=== PATIENT | female | born 1945 | race Caucasian/White ===

== ENCOUNTER → 2017-04-26 | Outpatient (CLI) | payer OTHER, BC ==
[~2017-04-26] MED LIST: LOSARTAN-HCTZ1 EACH; OXYBUTYNIN CHLO10 MG; PRAVASTATIN SOD40 MG; RESTASIS 01 DROP/0.4
== END | disposition home or self-care (01) ==
LOC: RAD 17:53
DX: M79.81 Nontraumatic hematoma of soft tissue (principal)
CPT/HCPCS: 93971

== ENCOUNTER → 2017-09-21 | Outpatient (CLI) | payer OTHER, BC | END | disposition home or self-care (01) | DX: Z01.818 Encounter for other preprocedural examination (principal); M17.12 Unilateral primary osteoarthritis, left knee; R26.2 Difficulty in walking, not elsewhere classified; M25.562 Pain in left knee; M25.662 Stiffness of left knee, not elsewhere classified; M62.81 Muscle weakness (generalized) | CPT/HCPCS: 97161 GP; 97165 GO; 97530 GP; 97535 GO; G8978 GP; G8979 GP; G8980 GP; G8984 GO; G8985 GO; G8986 GO ==

== ENCOUNTER 2017-10-04 22:10 | Inpatient (IN) | payer OTHER, BC ==
[~2017-10-04] VITALS: Ht 170.2 cm; Wt 94.8 kg
[~2017-10-04 22:10] MED LIST changes: +BIOTIN 5000MCG PO; +CLARITIN,ALAVAR10 MG PO; +FIBER THERAPY0.52 GM PO; +FLAX SEED OIL1 EACH PO; +FLONASE16 G1 BOTH NARES; +GLUCOSAMINE &1 EACH PO; +LITE COAT ASPI325 M1 PO; +OMEGA DHA92 MG PO; +PRILOSEC20 MG PO; +TURMERIC500 M2 PO; +VITAMIN D35000 UNIT PO
[2017-10-05 08:56] VITALS: BP 174/92
[2017-10-05 16:22] VITALS: BP 141/86
[2017-10-05 20:09] VITALS: BP 137/79
[2017-10-06 00:23] VITALS: BP 121/83
[2017-10-06 04:23] VITALS: BP 150/71
[2017-10-06 08:00] VITALS: BP 104/73
[2017-10-06 12:07] VITALS: BP 107/69
[2017-10-06 15:53] VITALS: BP 112/57
[2017-10-06 20:18] VITALS: BP 129/60
[2017-10-07 00:22] VITALS: BP 126/58
[2017-10-07 04:00] VITALS: BP 124/82
[2017-10-07 07:45] VITALS: BP 118/64
[2017-10-07] MEDS ORDERED: ENDOCET 5-3251 EACH PO (08:16)
[2017-10-07] MEDS ORDERED: ELIQUIS2.5 MG PO (08:16)
[2017-10-07 12:15] VITALS: BP 126/58
== END 2017-10-07 15:29 | DRG 470 ==
LOC: ENRESERV 22:10 → 2SOUTH 10-05 08:23 → 3WEST 10-05 08:29 → 2SOUTH 10-05 13:09 → 3WEST 10-05 15:33
PROC: 0SRD0J9 Replacement of Left Knee Joint with Synthetic Substitute, Cemented, Open Approach (ICD-10-PCS; principal; 2017-10-05)
DX: M17.12 Unilateral primary osteoarthritis, left knee (principal); M23.204 Derangement of unspecified medial meniscus due to old tear or injury, left knee; I10 Essential (primary) hypertension; K21.9 Gastro-esophageal reflux disease without esophagitis; J45.909 Unspecified asthma, uncomplicated; E78.00 Pure hypercholesterolemia, unspecified; G43.909 Migraine, unspecified, not intractable, without status migrainosus
CPT/HCPCS: C1713; J0131; J0690; J1100; J1885; J2250; J2405; J2795; J3010; J7050; J7120; S0020